=== PATIENT | male | born 1940 | race Caucasian/White ===

== ENCOUNTER 2023-05-06 13:22 | Outpatient (CLI) | payer MEDICARE, OTHER | END 2023-05-06 23:59 | disposition EMS.NT | LOC: EMS 13:22 | DX: S00.81XA Abrasion of other part of head, initial encounter (principal); W10.8XXA Fall (on) (from) other stairs and steps, initial encounter; Y92.008 Other place in unspecified non-institutional (private) residence as the place of occurrence of the external cause ==

== ENCOUNTER 2023-05-27 15:35 | Outpatient (CLI) | payer MEDICARE, OTHER | END 2023-05-27 15:36 | disposition critical access hospital (66) | LOC: EMS 15:35 | DX: S01.81XA Laceration without foreign body of other part of head, initial encounter (principal); W18.30XA Fall on same level, unspecified, initial encounter; Y92.480 Sidewalk as the place of occurrence of the external cause | CPT/HCPCS: A0425; A0429 ==

== ENCOUNTER 2023-05-27 15:56 | Emergency (ER) | payer MEDICARE, OTHER ==
--- NOTE | 2023-05-27 16:13 | ED Physician Documentation ---
PD HPI HEAD INJURY - Stated complaint Stated Complaint: GLF/EYE LAC - Chief complaint Chief Complaint: Trauma Hd/Nk - History obtained from History obtained from: Patient - History of Present Illness Mechanism of head injury: Fell (he states he was out walking to mailbox and felt himself off balance and fell, face first. He denies LOC/syncope. No headache prior. Facial pain and lacs from fall. Denies chest nor abd pain. States had a fall from balance problem last week as well. Usually goes to mailbox daily. Uses cane PRN.) Where head injury occurred: Home Timing - onset: Today Location of injury: Front Quality of pain: Pain (pain in facial injuries area of forehead and nose. Also some frontal headache.), Aching Associated symptoms: No: LOC, AMS, Nausea / vomiting, Neck pain Symptoms worsen with: Palpation Contributing factors: No: Anticoagulated, Intoxicated Recently seen: Not recently seen Review of Systems Constitutional: denies: Fever, Chills Nose: denies: Rhinorrhea / runny nose, Congestion Throat: denies: Sore throat Cardiac: denies: Chest pain / pressure, Palpitations Respiratory: denies: Dyspnea, Cough GI: denies: Abdominal Pain, Nausea, Vomiting, Diarrhea, Bloody / black stool Neurologic: denies: Syncope, Altered mental status PD PAST MEDICAL HISTORY - Past Medical History Cardiovascular: Hypertension, High cholesterol Respiratory: None Neuro: None Endocrine/Autoimmune: None - Past Surgical History Past Surgical History: Yes Ortho: Spine surgery - Present Medications Home Medications: Ambulatory Orders Medication Instructions Recorded Confirmed Hydroxyzine HCl 25 mg PO TID 08/03/14 11/25/14 Tamsulosin [Flomax] 0.4 mg PO DAILY #10 capsule 08/03/14 11/25/14 oxyCODONE [Roxicodone] 5 mg PO TID 08/03/14 11/25/14 Simvastatin 1 tab DAILY 11/25/14 11/25/14 lisinopriL [Lisinopril] 1 tab DAILY 11/25/14 11/25/14 Ferrous Gluconate 324 mg PO DAILY #30 tablet 05/27/23 - Allergies Allergies/Adverse Reactions: Allergies Allergy/AdvReac Type Severity Reaction Status Date / Time adhesive Allergy Unknown Verified 05/27/23 16:06 - Living Situation Living Situation: reports: Alone Living Arrangement: reports: At home - Social History Does the pt smoke?: No Smoking Status: Never smoker Does the pt drink ETOH?: No Does the pt have substance abuse?: No PD ED PE NORMAL - Vitals Vital signs reviewed: Yes - General General: Alert and oriented X 3, No acute distress, Well developed/nourished - HEENT HEENT: PERRL (constricted bilaterally but reactive. ), EOMI (no dipolopia. ), Other (small lacerations left forehead and bridge of nose. No faical bony deformity nor tenderness. Abrasions in those areas too. ) - Neck Neck: Supple, no meningeal sign, No bony TTP, No adenopathy - Cardiac Cardiac: RRR, No murmur - Respiratory Respiratory: Clear bilaterally Results - Vitals Vitals: Vital Signs - 24 hr 05/27/23 05/27/23 05/27/23 16:00 16:25 18:02 Temperature 36.6 C Heart Rate 82 81 89 Respiratory 16 16 16 Rate Blood Pressure 158/68 H 151/67 H 144/68 H O2 Saturation 100 100 100 05/27/23 05/27/23 19:35 20:35 Temperature Heart Rate 81 74 Respiratory 16 16 Rate Blood Pressure 137/65 H 135/112 H O2 Saturation 100 99 Oxygen O2 Source Room air - EKG (time done) 06 EKG releavant findings:: EKG personally interpreted by author of this note. Relevant findings are: Rate: Rate (enter#) (82) Rhythm: NSR [place]: Normal Intervals: Normal NV QRS: Normal Ischemia: Normal ST segments. No: ST elevation c/w ischemia, ST depression - Labs Labs: Laboratory Tests 05/27/23 05/27/23 05/27/23 17:26 17:26 17:26 WBC 9.1 RBC 3.06 L Hgb 9.7 L Hct 30.3 L MCV 99.0 H MCH 31.7 H MCHC 32.0 RDW 12.8 Plt Count 190 MPV 9.8 Neut # (Auto) 6.4 Lymph # (Auto) 1.6 [place] # (Auto) 0.8 Eos # (Auto) 0.3 Baso # (Auto) 0.0 Absolute Nucleated RBC 0.00 Nucleated RBC % 0.0 Sodium 138 Potassium 4.0 Chloride 107 Carbon Dioxide 24 Anion Gap 7.0 BUN 56 H Creatinine 1.5 H Estimated GFR (MDRD) 45 L Glucose 108 H Calcium 9.7 Magnesium 1.8 Iron TIBC % Saturation Transferrin Total Bilirubin 0.4 AST 28 ALT 17 Alkaline Phosphatase 67 B-Natriuretic Peptide 89 Total Protein 6.8 Albumin 4.0 Globulin 2.8 Albumin/Globulin Ratio 1.4 Lipase 48 Vitamin B12 Folate Ethyl Alcohol < 10.0 05/27/23 17:26 WBC RBC Hgb Hct MCV MCH MCHC RDW Plt Count MPV Neut # (Auto) Lymph # (Auto) [place] # (Auto) Eos # (Auto) Baso # (Auto) Absolute Nucleated RBC Nucleated RBC % Sodium Potassium Chloride Carbon Dioxide Anion Gap BUN Creatinine Estimated GFR (MDRD) Glucose Calcium Magnesium Iron 40 L TIBC 273 % Saturation 15 L Transferrin 195 L Total Bilirubin AST ALT Alkaline Phosphatase B-Natriuretic Peptide Total Protein Albumin Globulin Albumin/Globulin Ratio Lipase Vitamin B12 252 Folate 26.7 Ethyl Alcohol - Rads (name of study) chest xray Relevant Findings:: Prelim report reviewed (low lung volume. No acute provess), EMP independent interpretation of test cervical CT Relevant Findings:: Prelim report reviewed (no acute fractures), EMP independent interpretation of test head CT Relevant Findings:: Prelim report reviewed (3 mm width small subdural hematome frontal left.), Discussed with rads, EMP independent interpretation of test Procedures - Laceration (location) face Length in cm: 2 (forehead and bridge of nose) Wound type: Irregular Neurovascular status: Sensory intact Anesthesia: LET Wound preparation: Irrigated copiously NS, Wound explored, To the base Skin layer closure: Nylon, Interrupted, Size #-0 - enter number (5), Sutures - enter # (5 - 2 in forehead and 3 no bridge of nose.) PD Medical Decision Making - ED course Complexity details: reviewed results (has current fall with facial/head injury. Has some bilateral leg edema for weeks/months, and will get labs CXR. Results of these are mild elevated renal function creatinine 1.5, normal BNP. Lytes are okay. Does have anemia from low iron. Can add Iron supplement. ), considered differential (fall apparently from misbalance. No syncope. Will get labs due to description of some general weakness. Frontal head injury. With age, cannot clear by NEXUS head rules. WIll get CT head and neck. ), d/w patient, d/w cisco consultant (small subdural but very small. Will consult neurosurgery at [facility] [place] [place] for consultation. Presume will want repeatscan at an interval. Left care to oncoming EDMD. ) Departure - Departure Clinical Impression: Fall from slip, trip, or stumble, Subdural hematoma, Facial laceration, Bilateral leg edema, Iron deficiency anemia, Renal insufficiency Condition: Stable Record reviewed to determine appropriate education?: Yes Prescriptions: Ferrous Gluconate 324 mg PO DAILY #30 tablet Comments: It is okay to wash and shower. Cleanse wounds daily with soap and water and apply ointment. recheck if signs of infection. Suture removal in 7-8 days. Recheck if signs of infection. For your leg edema, no signs of heart failure nor fluid overload per se. Elevate legs often and consider wraps or compression socks to help with swelling. You do have anemia paparently from iron deficiency. Add iron supplement daily. FOllow up with your PCP, call for appt. Forms: PCP List
[2023-05-27] MEDS ORDERED: LIDOCAINE-EPINEPH-TETRACAINE 3 ML SYRINGE TOP STA (16:42)
--- NOTE | 2023-05-27 17:07 | XRAY Report ---
PROCEDURE: Chest 1 View X-Ray INDICATIONS: bilat leg edema TECHNIQUE: One view of the chest was acquired. COMPARISON: None. FINDINGS: Surgical changes and devices: None. Lungs and pleura: An incomplete inspiratory result is noted, with low lung volumes and crowding of t he vascular markings. No focal infiltrates are seen. No large pneumothorax or large pleural effusion can be seen. Mediastinum: The aorta is prominent and tortuous. The cardiac contours are within normal limits. Bones and chest wall: No suspicious bony lesions. Age-appropriate degenerative changes are seen. O verlying soft tissues appear unremarkable. IMPRESSION: Low lung volumes, without an acute abnormality seen by plain film. Reviewed by: Tae Caballero MD on 05/27/2023 4:06 PM MARIS Approved by: Tae Caballero MD on 05/27/2023 4:06 PM MARIS Station ID: [id number]
[2023-05-27] MEDS ORDERED: SODIUM CHLORIDE 0.9% 1,000 ML IV STA (17:08)
[2023-05-27 17:30] LABS: BASOPHILS % (AUTO) 0.4 %; EOSINOPHILS # (AUTO) 0.3 10^3/uL (0.0-0.7); EOSINOPHILS % (AUTO) 2.8 %; HCT - HEMATOCRIT 30.3 % (42.0-52.0); HGB - HEMOGLOBIN 9.7 g/dL (14.0-18.0); LYMPHOCYTES # (AUTO) 1.6 10^3/uL (1.5-3.5); LYMPHOCYTES % (AUTO) 17.2 %; MEAN CORPUSCULAR HEMOGLOBIN 31.7 pg (27.0-31.0); MEAN PLATELET VOLUME 9.8 fL (7.4-11.4); MONOCYTES # (AUTO) 0.8 10^3/uL (0.0-1.0); MONOCYTES % (AUTO) 9.1 %; NEUTROPHILS # (AUTO) 6.4 10^3/uL (1.5-6.6); NEUTROPHILS % (AUTO) 70.1 %; PLT - PLATELET COUNT 190 10^3/uL (130-450); RED BLOOD COUNT 3.06 10^6/uL (4.70-6.10); RED CELL DISTRIBUTION WIDTH 12.8 % (12.0-15.0); WHITE BLOOD COUNT 9.1 x10^3/uL (4.8-10.8)
[2023-05-27 17:48] LABS: ALBUMIN/GLOBULIN RATIO 1.4 (1.0-2.2); ALKALINE PHOSPHATASE 67 IU/L (42-121); ALT ALANINE AMINOTRANSFERASE 17 IU/L (10-60); AST ASPARTATE AMINOTRANSFERASE 28 IU/L (10-42); BILIRUBIN,TOTAL 0.4 mg/dL (0.2-1.0); BUN - BLOOD UREA NITROGEN 56 mg/dL (6-20); CALCIUM 9.7 mg/dL (8.5-10.3); CARBON DIOXIDE - CO2 24 mmol/L (21-32); CHLORIDE 107 mmol/L (101-111); CREATININE 1.5 mg/dL (0.6-1.3); ETOH - ETHANOL < 10.0 mg/dL; GFR - MDRD 45 (>89); GLUCOSE 108 mg/dL (74-104); LIPASE 48 U/L (11-82); MAGNESIUM 1.8 mg/dL (1.7-2.3); SODIUM 138 mmol/L (135-145); TOTAL PROTEIN 6.8 g/dL (6.4-8.9)
--- NOTE | 2023-05-27 18:14 | CT Report ---
PROCEDURE: CERVICAL SPINE WO INDICATIONS: fall struck face; head/neck pain TECHNIQUE: Noncontrast 3 mm thick sections acquired from the skull base to the T4 level. Sagittal and coronal r eformats were then constructed. For radiation dose reduction, the following was used: automated exp osure control, adjustment of mA and/or kV according to patient size. COMPARISON: Correlation is made with the accompanying head CT. FINDINGS: Image quality: Excellent. Bones: No fractures or dislocations. Visualized superior ribs are intact. Focal degenerative change can be seen involving the C1-C2 interface anteriorly. Minimal anterolisthes is is seen at C3-C4, with mild anterolisthesis at C4-C5, with moderate disc space narrowing. There is trace narrowing is seen at C5-C6, with a degree of bony fusion. Moderate to severe disc space narrow ing can be seen at C6-7, with a degree of bony fusion. Minimal retrolisthesis can be seen at C6-C7. Soft tissues: Prevertebral soft tissues are normal in thickness. No paravertebral hematomas. No ap ical pneumothoraces. IMPRESSION: Negative for acute fracture. Multiple levels of cervical spine degenerative change can be seen, which are worst in the early. Reviewed by: Tae Caballero MD on 05/27/2023 5:12 PM MARIS Approved by: Tae Caballero MD on 05/27/2023 5:12 PM MARIS Station ID: [id number]
--- NOTE | 2023-05-27 18:20 | CT Report ---
PROCEDURE: HEAD WO INDICATIONS: fall, struvck face: hed/neck pain TECHNIQUE: Noncontrast 4.5 mm thick angled axial sections acquired from the foramen magnum to the vertex. For r adiation dose reduction, the following was used: automated exposure control, adjustment of mA and/or kV according to patient size. COMPARISON: None. FINDINGS: Image quality: Excellent. CSF spaces: Basal cisterns are patent. No extra-axial fluid collections. Ventricles are normal in size and shape. Brain: No midline shift. There is a small left frontal 3 mm subdural hematoma. Age-related global vo lume loss and chronic microvascular ischemic changes. Intracranial atherosclerotic vascular calcifica tions. Earl-white matter interface is normal. Skull and face: Left frontal scalp laceration with subcutaneous emphysema. Calvarium and visualized facial bones are intact, without suspicious lesions. Sinuses: Visualized sinuses and mastoids are clear. IMPRESSION: There is a 3 mm left frontal subdural hematoma near midline. Findings were discussed with ebony Bolton at the time of dictation. Reviewed by: Karri Oshea MD on 05/27/2023 6:19 PM PDT Approved by: Karri Oshea MD on 05/27/2023 6:19 PM PDT Station ID: [id number]
--- NOTE | 2023-05-27 19:17 | ED Physician Documentation ---
ED Addendum - Addendum Addendum: 05/27/23 19:15 Patient received a signout from off going physician, please see their d ocumentation for further detail. Patient signed out to me with consultation with [facility] neurosurgery pending for 3 mm left frontal subdural. Medications reviewed, no blood thinners or antiplatelet medications. Remainder patient's labs and imaging reviewed, generally reassuring.Low level anemia slightly worse than baseline noted. Mild elevation BUN/creatinine. 05/27/23 19:16 05/27/23 23:[address] unchanged from previous. Care was discussed with the neurosurgical team at [facility]. At this time will discharge for follow-up with primary care. Clear return precautions given. Departure - Departure Disposition: 01 Home, Self Care Clinical Impression: Subdural hematoma, Bilateral leg edema, Renal insufficiency Fall from slip, trip, or stumble Qualifiers: Encounter type: initial encounter Qualified Code(s): W01.0XXA - Fall on same level from slipping, tripping and stumbling without subsequent striking against object, initial encounter Facial laceration Qualifiers: Encounter type: initial encounter Qualified Code(s): S01.81XA - Laceration without foreign body of other part of head, initial encounter Iron deficiency anemia Qualifiers: Iron deficiency anemia type: other iron deficiency Qualified Code(s): D50.8 - Other iron deficiency anemias Condition: Stable Prescriptions: Ferrous Gluconate 324 mg PO DAILY #30 tablet Comments: It is okay to wash and shower. Cleanse wounds daily with soap and water and apply ointment. recheck if signs of infection. Suture removal in 7-8 days. Recheck if signs of infection. For your leg edema, no signs of heart failure nor fluid overload per se. Elevate legs often and consider wraps or compression socks to help with swelling. You do have anemia paparently from iron deficiency. Add iron supplement daily. FOllow up with your PCP, call for appt. Forms: PCP List
[2023-05-27] MEDS ORDERED: ACETAMINOPHEN 1,000 MG/100 ML 1,000 MG/100 ML BAG IV ONE (19:40)
[2023-05-27 20:58] LABS: INR 1.1 (0.8-1.2)
[2023-05-27] MEDS ORDERED: oxyCODONE 5 MG TABLET PO STA (23:41)
--- NOTE | 2023-05-27 23:46 | CT Report ---
PROCEDURE: HEAD WO INDICATIONS: Interval repeat TECHNIQUE: Noncontrast 4.5 mm thick angled axial sections acquired from the foramen magnum to the vertex. For r adiation dose reduction, the following was used: automated exposure control, adjustment of mA and/or kV according to patient size. COMPARISON: Study performed earlier the same day at 1732 hours. FINDINGS: Image quality: Excellent. CSF spaces: Basal cisterns are patent. No extra-axial fluid collections. Ventricles are normal in size and shape. Brain: No midline shift. There is stable size and appearance of subtle, thin left frontal subdural hematoma near the midline. No CT evidence of new intracranial hemorrhage. Earl-white matter interface is normal. Skull and face: Stable appearance to small subcutaneous soft tissue hematoma in the left frontal reg ion without debris or underlying fracture. Sinuses: Visualized sinuses and mastoids are clear. IMPRESSION: 1. Stable appearance of small left frontal subdural hematoma. 2. No CT evidence of new intracranial hemorrhage elsewhere . Reviewed by: Ela Escamilla MD on 05/27/2023 11:45 PM PDT Approved by: Ela Escamilla MD on 05/27/2023 11:45 PM PDT Station ID: [id number]
[2023-05-28 01:53] VITALS: BP 117/54; O2SAT 94
== END 2023-05-28 01:40 | disposition home or self-care (01) ==
LOC: EDUNIT# → ED 15:56
DX: S01.81XA Laceration without foreign body of other part of head, initial encounter (principal); W01.0XXA Fall on same level from slipping, tripping and stumbling without subsequent striking against object, initial encounter; D50.9 Iron deficiency anemia, unspecified; N28.9 Disorder of kidney and ureter, unspecified; I10 Essential (primary) hypertension; R60.9 Edema, unspecified
CPT/HCPCS: 12011; 36415; 70450; 71045; 72125; 80053; 82607; 82746; 83540; 83690; 83735; 83880; 84466; 85025; 85610; 93005; 96365; 99284; A9270; G0480; J0131; 80320

== ENCOUNTER 2024-02-23 13:15 | Outpatient (CLI) | payer MEDICARE, OTHER ==
--- NOTE | 2024-02-23 15:02 | Ultrasound Report ---
PROCEDURE: Renal (Retroperitoneal) INDICATIONS: KIDNEY DYSFUNCTION TECHNIQUE: Real-time scanning was performed of the retroperitoneal organs, with image documentation. COMPARISON: None. FINDINGS: Kidneys: Kidneys are normal in size. Right kidney measures 8.9 cm long; left kidney measures 11.2 c m long. Right renal cortical thickness is 0.8 cm; left renal cortical thickness is 0.5 cm. There is severe left-sided hydronephrosis with dilated proximal left ureter measures 3.1 cm in diamet er. Moderate to severe right-sided hydronephrosis is also seen with distended right renal pelvis. Sim ple appearing cysts are noted in right kidney measures up to 1.7 x 2.1 x 2.1 cm in size. Simple appea ring small cysts are also noted in left kidney. There is a solid appearing hypoechoic structure seen in midpole of left kidney measures 1.5 x 1.5 x 1.3 cm in size. No definite internal vascularity is se en. Bladder: Pre-void bladder volume is 656.31 mL. Post-void residual is 591.18 mL. Pre-void images de monstrate no intraluminal masses or stones. On pre-void images, bilateral ureteral jets are noted wi th color Doppler interrogation. (Of note, ureteral jets may not be detectable in up to 25% of cases due to insufficient differences in specific gravity between ureteral and bladder urine). Miscellaneous: No free abdominal fluid. Mildly enlarged prostate gland is seen with mass effect on floor of urinary bladder measures 3.6 x 4.6 x 3.6 cm in size. IMPRESSION: 1. Severe left-sided hydronephrosis and moderate to severe right-sided hydronephrosis as above. 2. Simple appearing bilateral renal cortical cysts. Solid appearing nodule is seen in mid pole left k idney and show no significant internal vascularity. This could represent complex cyst. Renal cell car cinoma cannot be excluded. 3. Large amount of postvoid residual concerning for urinary outlet obstruction. Reviewed by: Mac Parekh MD on 02/23/2024 3:00 PM PDT Approved by: Mac Parekh MD on 02/23/2024 3:00 PM PDT Station ID: [id number]
== END 2024-02-23 13:16 | disposition home or self-care (01) ==
LOC: DI 13:15
PROVIDERS: ATTEND Internal Medicine Nephrology
DX: N13.30 Unspecified hydronephrosis (principal); N28.1 Cyst of kidney, acquired; N28.89 Other specified disorders of kidney and ureter; N32.0 Bladder-neck obstruction

== ENCOUNTER 2024-02-25 09:17 | Emergency (ER) | payer MEDICARE, OTHER ==
--- NOTE | 2024-02-25 09:35 | ED Physician Documentation ---
History of Present Illness - Stated complaint Stated Complaint: NEEDS LANE PLACED - Chief complaint Chief Complaint: General - Additonal information Additional information: Nice gentleman with chronic kidney disease follows with Dr. Galvez as an outpatient. He had a retroperitoneal ultrasound which showed hydronephrosis and likely bladder outlet obstruction. Dr. Galvez called him and asked him to come to the ED for Lane. I spoke with Dr. Galvez who asked me to check a baseline BMP otherwise to place a Lane and to have him be seen as an outpatient by him as well as by urology. The patient is completely asymptomatic does have some drib víctor and frequency and sometimes difficulty passing his urine he has no fevers chills cough chest pain nausea or vomiting. Review of Systems Constitutional: denies: Fever, Chills PD PAST MEDICAL HISTORY - Past Medical History Past Medical History: Yes Cardiovascular: Hypertension, High cholesterol, Other Respiratory: None Neuro: None Endocrine/Autoimmune: None - Past Surgical History Past Surgical History: Yes Ortho: Spine surgery - Present Medications Home Medications: Ambulatory Orders Medication Instructions Recorded Confirmed Tamsulosin [Flomax] 0.4 mg PO DAILY #10 capsule 08/03/14 02/25/24 Acetaminophen [Tylenol] 1 tab PO PRN PRN 02/25/24 02/25/24 Ferrous Sulfate [Feosol] 1 tab PO DAILY 02/25/24 02/25/24 Folic Acid 1 tab PO DAILY 02/25/24 02/25/24 Furosemide [Lasix] 1 tab PO DAILY 02/25/24 02/25/24 Lisinopril [Zestril] 1 tab PO DAILY 02/25/24 02/25/24 Pantoprazole [Protonix] 1 tab PO DAILY 02/25/24 02/25/24 Rosuvastatin Calcium 1 tab PO DAILY 02/25/24 02/25/24 - Allergies Allergies/Adverse Reactions: Allergies Allergy/AdvReac Type Severity Reaction Status Date / Time adhesive Allergy Unknown Verified 02/25/24 09:30 - Social History Does the pt smoke?: No Smoking Status: Never smoker Does the pt drink ETOH?: No Does the pt have substance abuse?: No - Immunizations Immunizations are current?: Yes - POLST Patient has POLST: No PD ED PE NORMAL - Vitals Vital signs reviewed: Yes - General General: Alert and oriented X 3 - HEENT HEENT: Atraumatic - Neck Neck: Supple, no meningeal sign - Cardiac Cardiac: RRR, No murmur - Respiratory Respiratory: No respiratory distress - Abdomen Abdomen: Normal bowel sounds, Non tender - Extremities Extremities: No deformity, No edema - Neuro Neuro: Alert and oriented X 3 Results - Vitals Vitals: Vital Signs - 24 hr 02/25/24 02/25/24 09:26 09:30 Temperature 36.4 C L 36.7 C Heart Rate 61 59 L Respiratory 20 16 Rate Blood Pressure 163/62 H 169/76 H O2 Saturation 99 99 Oxygen O2 Source Room air - Labs Labs: Laboratory Tests 02/25/24 09:59 Sodium 138 Potassium 4.3 Chloride 106 Carbon Dioxide 26 Anion Gap 6.0 BUN 33 H Creatinine 2.0 H Estimated GFR (MDRD) 32 L Glucose 109 H Calcium 9.8 PD Medical Decision Making - ED course ED course: Discussed this case with Dr. Galvez his machine tender. He recommended placing Lane and checking a BMP to gauge his current level. His BUN and creatinine are slightly elevated with a creatinine of 2.0. This will be followed by Dr. Barth and his machine tender as an outpatient. The patient had a Lane catheter placed was given Lane care instructions be following up in the outpatient setting. Departure - Departure Disposition: 01 Home, Self Care Clinical Impression: Urinary retention Instructions: ED Catheter Care Lane, ED Retention Urinary Male Follow-Up: Cici Barth MD [Primary Care Provider] - Carlos Mendes MD [Provider Admit Priv/Credential] - Comments: Per Dr. Barth, the Lane catheter needs to be in for about a month. Will give the name of the urologist Dr. Mendes as well. We gave you Lane care instructions for home. See Dr. Hall in 1 to 2 weeks as scheduled. Return to emergency department if catheter is not working fevers chills nausea vomiting any other concerns. Forms: PCP List
[2024-02-25 10:15] LABS: CALCIUM 9.8 mg/dL (8.5-10.3); POTASSIUM 4.3 mmol/L (3.5-4.5)
[2024-02-25] MEDS ORDERED: LIDOCAINE VISCOUS 2% 15 ML UDC MM STA (10:35)
[2024-02-25] MEDS: LIDOCAINE 2% URO-JET 5 ML SYRINGE UR STA (10:45)
[2024-02-25 11:19] LABS: BILIRUBIN,URINE NEGATIVE (NEGATIVE); GLUCOSE, URINE (UA) NEGATIVE (NEGATIVE); KETONES,URINE (UA) NEGATIVE (NEGATIVE); LEUKOCYTE ESTERASE, URINE NEGATIVE (NEGATIVE); NITRITE,URINE NEGATIVE (NEGATIVE); OCCULT BLOOD,URINE MODERATE (NEGATIVE); PROTEIN,URINE NEGATIVE (NEGATIVE); UROBILINOGEN,URINE 0.2 (NORMAL) E.U./dL (NORMAL)
[2024-02-25 11:22] LABS: CLARITY,URINE CLEAR (CLEAR)
[2024-02-25 11:30] LABS: BACTERIA,URINE None Seen /HPF (None Seen); SQUAMOUS EPITHELIAL CELL,UR NONE SEEN (<= Few); WBC,URINE 0-3 /HPF (0-3)
[2024-02-25 11:35] VITALS: BP 147/88; O2SAT 98
== END 2024-02-25 11:30 | disposition home or self-care (01) ==
LOC: ED 09:17
DX: R33.9 Retention of urine, unspecified (principal); N18.9 Chronic kidney disease, unspecified; I10 Essential (primary) hypertension; E78.00 Pure hypercholesterolemia, unspecified
CPT/HCPCS: 36415; 51702; 80048; 81001; 81003; 87086; 99283

== ENCOUNTER 2024-03-15 07:33 | Outpatient (CLI) | payer MEDICARE, OTHER | END 2024-03-15 23:59 | disposition critical access hospital (66) | LOC: EMS 07:33 | DX: R53.1 Weakness (principal); M54.50 Low back pain, unspecified; T83.84XA Pain due to genitourinary prosthetic devices, implants and grafts, initial encounter; R39.89 Other symptoms and signs involving the genitourinary system | CPT/HCPCS: A0425; A0429 ==

== ENCOUNTER 2024-03-15 07:54 | Emergency (ER) | payer MEDICARE, OTHER ==
--- NOTE | 2024-03-15 08:15 | ED Physician Documentation ---
PD HPI ALTERED MENTAL STATUS - Stated complaint Stated Complaint: - Chief complaint Chief Complaint: Back Pain - History obtained from History obtained from: Patient - History of Present Illness Timing - onset: Today, Yesterday Timing - details: Gradual onset, Still present Quality / character: Agitated (uncoomfrtable due to lower abd and back pain. Cloudy urine output from sharma. No fever but states generally not feeling weel. Achy generally. No fever.) Associated symptoms: No: Fever, Cough Contributing factors: Other (chronic sharma, last changed about 1 1/2 weeks ago.). No: Recent illness Basline status: Confused, Walker, Wheelchair PD PAST MEDICAL HISTORY - Past Medical History Past Medical History: Yes Cardiovascular: Hypertension, High cholesterol, Other Respiratory: None Neuro: Dementia Endocrine/Autoimmune: None HEENT: None Musculoskeletal: Chronic back pain, Other Other Past Medical History: spinal stenosis - Past Surgical History Past Surgical History: Yes Ortho: Spine surgery - Present Medications Home Medications: Ambulatory Orders Medication Instructions Recorded Confirmed Acetaminophen [Tylenol] 650 tab PO Q6HR PRN 02/25/24 03/15/24 Ferrous Sulfate [Feosol] 325 mg PO DAILY 02/25/24 03/15/24 Folic Acid 1 mg PO DAILY 02/25/24 03/15/24 Furosemide [Lasix] 20 mg PO DAILY PRN 02/25/24 03/15/24 Lisinopril [Zestril] 10 mg PO DAILY 02/25/24 03/15/24 Pantoprazole [Protonix] 40 mg PO DAILY 02/25/24 03/15/24 Rosuvastatin Calcium 5 mg PO DAILY 02/25/24 03/15/24 Ascorbic Acid [Vitamin C] 250 mg PO DAILY 03/15/24 03/15/24 Cholecalciferol [Vitamin D3] 400 unit PO DAILY 03/15/24 03/15/24 Cyanocobalamin (Vitamin B-12) 1,000 mcg PO DAILY 03/15/24 03/15/24 [Vitamin B12] Loperamide [Imodium] 4 mg PO QID PRN 03/15/24 03/15/24 Mag Hydrox/Aluminum Hyd/Simeth 30 ml PO Q4HR PRN 03/15/24 03/15/24 [Alum-Mag Hydroxide-Simeth Cup] Magnesium Hydroxide [Milk of 400 mg PO PRN PRN 03/15/24 03/15/24 Magnesia] levoFLOXacin [Levofloxacin] 250 mg PO BID #20 tablet 03/15/24 - Allergies Allergies/Adverse Reactions: Allergies Allergy/AdvReac Type Severity Reaction Status Date / Time adhesive Allergy Unknown Verified 02/25/24 09:30 chocolate Allergy Unknown Verified 03/15/24 07:56 peanut Allergy Unknown Verified 03/15/24 07:56 pepper (genus Capsicum) Allergy Unknown Verified 03/15/24 07:56 - Social History Does the pt smoke?: No Smoking Status: Never smoker Does the pt drink ETOH?: No Does the pt have substance abuse?: No - Immunizations Immunizations are current?: Yes - POLST Patient has POLST: No PD ED PE NORMAL - Vitals Vital signs reviewed: Yes - General General: Alert and oriented X 3, Well developed/nourished, Other (appears feeling ill and in general discomfort, but more to lower abd and back. ) - Respiratory Respiratory: No respiratory distress, Clear bilaterally - Abdomen Abdomen: Normal bowel sounds, Soft, No organomegaly, Other (tender and full in suprapubic/bladder area. Sharma in place and has some urine draiange that is cloudy. ) Results - Vitals Vitals: Vital Signs - 24 hr 03/15/24 14:00 Heart Rate 69 Respiratory 16 Rate Blood Pressure 98/46 L O2 Saturation 96 Oxygen O2 Source Room air - Labs Labs: Microbiology 03/15/24 08:50 Urine Culture - Preliminary Urine,Catheterized Laboratory Tests 03/15/24 03/15/24 03/15/24 08:40 08:40 08:40 WBC 14.2 H RBC 3.14 L Hgb 9.6 L Hct 29.9 L MCV 95.2 H MCH 30.6 MCHC 32.1 RDW 12.3 Plt Count 245 MPV 9.5 Neut # (Auto) 12.8 H Lymph # (Auto) 0.5 L [place] # (Auto) 0.8 Eos # (Auto) 0.0 Baso # (Auto) 0.0 Absolute Nucleated RBC 0.00 Nucleated RBC % 0.0 Sodium 138 Potassium 4.5 Chloride 106 Carbon Dioxide 22 Anion Gap 10.0 BUN 66 H Creatinine 2.9 H Estimated GFR (MDRD) 21 L Glucose 154 H Lactic Acid 0.7 Calcium 9.8 Magnesium 1.9 Total Bilirubin 0.5 AST 15 ALT 13 Alkaline Phosphatase 58 Total Protein 6.9 Albumin 3.4 Globulin 3.5 Albumin/Globulin Ratio 1.0 Lipase 11 Urine Color Urine Clarity Urine pH Ur Specific [employer] Urine Protein Urine Glucose (UA) Urine Ketones Urine Occult Blood Urine Nitrite Urine Bilirubin Urine Urobilinogen Ur Leukocyte Esterase Urine RBC Urine WBC Ur Squamous Epith Cells Urine Bacteria Ur Microscopic Review Urine Culture Comments Nasal Adenovirus (PCR) Nasal B. parapertussis DNA (PCR) Nasal Coronavir 229E PCR Nasal Coronavir HKU1 PCR Nasal Coronavir NL63 PCR Nasal Coronavir OC43 PCR Nasal Enterovir/Rhinovir PCR Nasal Influenza B PCR Nasal Influenza A PCR Nasal Parainfluen 1 PCR Nasal Parainfluen 2 PCR Nasal Parainfluen 3 PCR Nasal Parainfluen 4 PCR Nasal RSV (PCR) Nasal B.pertussis DNA PCR Nasal C.pneumoniae (PCR) Ruben Human Metapneumo PCR Nasal M.pneumoniae (PCR) Nasal SARS-CoV-2 (PCR) 03/15/24 03/15/24 08:45 08:50 WBC RBC Hgb Hct MCV MCH MCHC RDW Plt Count MPV Neut # (Auto) Lymph # (Auto) [place] # (Auto) Eos # (Auto) Baso # (Auto) Absolute Nucleated RBC Nucleated RBC % Sodium Potassium Chloride Carbon Dioxide Anion Gap BUN Creatinine Estimated GFR (MDRD) Glucose Lactic Acid Calcium Magnesium Total Bilirubin AST ALT Alkaline Phosphatase Total Protein Albumin Globulin Albumin/Globulin Ratio Lipase Urine Color YELLOW Urine Clarity CLOUDY Urine pH 8.5 H Ur Specific [employer] 1.015 Urine Protein 100 H Urine Glucose (UA) NEGATIVE Urine Ketones NEGATIVE Urine Occult Blood MODERATE H Urine Nitrite POSITIVE H Urine Bilirubin NEGATIVE Urine Urobilinogen 0.2 (NORMAL) Ur Leukocyte Esterase LARGE H Urine RBC 11-25 H Urine WBC >25 H Ur Squamous Epith Cells NONE SEEN Urine Bacteria Many H Ur Microscopic Review INDICATED Urine Culture Comments INDICATED Nasal Adenovirus (PCR) NOT DETECTED Nasal B. parapertussis DNA (PCR) NOT DETECTED Nasal Coronavir 229E PCR NOT DETECTED Nasal Coronavir HKU1 PCR NOT DETECTED Nasal Coronavir NL63 PCR NOT DETECTED Nasal Coronavir OC43 PCR NOT DETECTED Nasal Enterovir/Rhinovir PCR NOT DETECTED Nasal Influenza B PCR NOT DETECTED Nasal Influenza A PCR NOT DETECTED Nasal Parainfluen 1 PCR NOT DETECTED Nasal Parainfluen 2 PCR NOT DETECTED Nasal Parainfluen 3 PCR NOT DETECTED Nasal Parainfluen 4 PCR NOT DETECTED Nasal RSV (PCR) NOT DETECTED Nasal B.pertussis DNA PCR NOT DETECTED Nasal C.pneumoniae (PCR) NOT DETECTED Ruben Human Metapneumo PCR NOT DETECTED Nasal M.pneumoniae (PCR) NOT DETECTED Nasal SARS-CoV-2 (PCR) NOT DETECTED - Rads (name of study) abd/pel CT Relevant Findings:: Prelim report reviewed (sharma low below prostate and not draining with still full bladder and hydroureter/nephrosis. No stones. ), EMP independent interpretation of test PD Medical Decision Making - ED course Complexity details: reviewed results (CT scan showing sharma in urethra with poor draining. Full bladder and hydro noted. no stones. ), re-evaluated patient (his low abd and back pain are much improved/gone after replacement of the sharma and now good drainage. He does have UTI evident on UA. Not clear if regular contami nant versus true infection. Given symptoms may have been mechanical, but should treat for infection too. ), considered differential (having back pain and lower abd pain. Sharma draining sedimented and some cloudy. No fever. General weakness. General malaise and aches. ), d/w patient Reviewed Lab Results: creatinine up from 2.0 to 2.9 but likely an element of obstructive uropathy due to sharma dysfunction. WBC slightly elevated. Viral panel negative. Lactate negative. about baseline anemai. Unclear if he accidentally pulled catheter part out. Unlikely malpositioned since last sharma change, which was 1 1/2 weeks ago, I thinkw would have been symptomatic prior to this. Departure - Departure Disposition: 01 Home, Self Care Clinical Impression: Back pain, UTI (urinary tract infection), Sharma catheter problem, Chronic indwelling Sharma catheter, Renal insufficiency Condition: Stable Record reviewed to determine appropriate education?: Yes Instructions: ED UTI Cystitis Male Prescriptions: levoFLOXacin [Levofloxacin] 250 mg PO BID #20 tablet Comments: Your symptoms of the back pain and general body aches likely originates or is caused by a urinary tract infection. Your urine does look consistent with an infection (unfortunately there is often some appearance of that with a chronic Sharma catheter even without a true infection). We will do a culture on this and see what grows from it. I initiated a antibiotic ciprofloxacin twice daily. You were given a dose IV here in the ER. Your Sharma catheter was partly pulled out on CT scan such that it was not draining the bladder appropriately and causing some back pressure to the kidneys. This was no doubt adding to your discomfort in the back and belly and those symptoms should be well improved now and apparently you are with a new catheter in place. Your catheter now appears to be draining well. Your white count is slightly elevated on blood testing but other markers like fever and blood test called lactate are normal. No signs of sepsis developing per se at this time. At this point there does not appear to be criteria for hospitalization. I believe you will do okay back at your care facility with the oral antibiotics and your usual medicines. Discharge Date/Time: 03/15/24 15:57
[2024-03-15] MEDS: SODIUM CHLORIDE 0.9% 1,000 ML IV STA ×2 (08:45→11:33)
[2024-03-15 08:47] LABS: BASOPHILS % (AUTO) 0.1 %; EOSINOPHILS % (AUTO) 0.1 %; HCT - HEMATOCRIT 29.9 % (42.0-52.0); HGB - HEMOGLOBIN 9.6 g/dL (14.0-18.0); LYMPHOCYTES # (AUTO) 0.5 10^3/uL (1.5-3.5); LYMPHOCYTES % (AUTO) 3.2 %; MEAN CORPUSCULAR HEMOGLOBIN 30.6 pg (27.0-31.0); MEAN CORPUSCULAR HGB CONC 32.1 g/dL (32.0-36.0); MEAN CORPUSCULAR VOLUME 95.2 fL (80.0-94.0); MEAN PLATELET VOLUME 9.5 fL (7.4-11.4); MONOCYTES # (AUTO) 0.8 10^3/uL (0.0-1.0); MONOCYTES % (AUTO) 5.4 %; NEUTROPHILS # (AUTO) 12.8 10^3/uL (1.5-6.6); NEUTROPHILS % (AUTO) 90.7 %; PLT - PLATELET COUNT 245 10^3/uL (130-450); RED BLOOD COUNT 3.14 10^6/uL (4.70-6.10); RED CELL DISTRIBUTION WIDTH 12.3 % (12.0-15.0); WHITE BLOOD COUNT 14.2 x10^3/uL (4.8-10.8)
--- NOTE | 2024-03-15 08:47 | XRAY Report ---
PROCEDURE: Chest 1V INDICATIONS: weakness TECHNIQUE: One view of the chest was acquired. COMPARISON: Chest radiographs 05/27/2023. FINDINGS: Surgical changes and devices: None. Lungs and pleura: No pleural effusions or pneumothorax. Lungs are clear. Mediastinum: Mediastinal contours appear normal. Heart size is normal. Bones and chest wall: No suspicious bony lesions. Overlying soft tissues appear unremarkable. IMPRESSION: No acute cardiopulmonary process. Reviewed by: Austin Mathis MD on 03/15/2024 8:46 AM PDT Approved by: Austin Mathis MD on 03/15/2024 8:46 AM PDT Station ID: [id number]
[2024-03-15 08:56] LABS: BILIRUBIN,URINE NEGATIVE (NEGATIVE); GLUCOSE, URINE (UA) NEGATIVE (NEGATIVE); KETONES,URINE (UA) NEGATIVE (NEGATIVE); LEUKOCYTE ESTERASE, URINE LARGE (NEGATIVE); NITRITE,URINE POSITIVE (NEGATIVE); OCCULT BLOOD,URINE MODERATE (NEGATIVE); PH,URINE 8.5 PH (5.0-7.5); PROTEIN,URINE 100 mg/dL (NEGATIVE); UROBILINOGEN,URINE 0.2 (NORMAL) E.U./dL (NORMAL)
[2024-03-15 08:57] LABS: CLARITY,URINE CLOUDY (CLEAR)
[2024-03-15 09:01] LABS: ALBUMIN 3.4 g/dL (3.2-5.5); BILIRUBIN,TOTAL 0.5 mg/dL (0.2-1.0); CALCIUM 9.8 mg/dL (8.5-10.3); CREATININE 2.9 mg/dL (0.6-1.3); MAGNESIUM 1.9 mg/dL (1.7-2.3); POTASSIUM 4.5 mmol/L (3.5-4.5); TOTAL PROTEIN 6.9 g/dL (6.4-8.9)
[2024-03-15 09:06] LABS: BACTERIA,URINE Many /HPF (None Seen); SQUAMOUS EPITHELIAL CELL,UR NONE SEEN (<= Few); WBC,URINE >25 /HPF (0-3)
[2024-03-15 09:49] LABS: B. PARAPERTUSSIS- RESP PCR PAN NOT DETECTED; B. PERTUSSIS- RESP PCR PANEL NOT DETECTED; C. PNEUMONIAE- RESP PCR PANEL NOT DETECTED; CORONAVIRUS 229E-RESP PCR NOT DETECTED; CORONAVIRUS HKU1-RESP PCR NOT DETECTED; CORONAVIRUS NL63-RESP PCR NOT DETECTED; CORONAVIRUS OC43-RESP PCR NOT DETECTED; HUMAN METAPNEUMOVIRUS NOT DETECTED; INFLUENZA A- RESP PCR PANEL NOT DETECTED; INFLUENZA B - RESP PCR PANEL NOT DETECTED; M. PNEUMONIAE- RESP PCR PANEL NOT DETECTED; PARAINFLUENZA VIRUS 1 NOT DETECTED; PARAINFLUENZA VIRUS 2 NOT DETECTED; PARAINFLUENZA VIRUS 3 NOT DETECTED; PARAINFLUENZA VIRUS 4 NOT DETECTED; RHINOVIRUS/ENTEROVIRUS NOT DETECTED; RSV- RESP PCR PANEL NOT DETECTED; SARS-CoV-2 -RESP PCR PANEL NOT DETECTED
[2024-03-15] MEDS: levoFLOXacin 750 MG/150 ML 750 MG/150 ML BAG IV STA (10:19)
[2024-03-15] MEDS: HYDROmorphone 1 MG/ML CARPUJECT IVP STA (11:32)
[2024-03-15] MEDS: ACETAMINOPHEN 500 MG TABLET PO STA (11:33)
--- NOTE | 2024-03-15 12:32 | CT Report ---
PROCEDURE: Abdomen/Pelvis WO INDICATIONS: UTI, back pain TECHNIQUE: A CT scan of the abdomen and pelvis was performed without the use of intravenous contrast. Images we re recorded and evaluated at appropriate window settings. Reformats: coronal and sagittal. For radiat ion dose reduction, the following was used: automated exposure control, adjustment of mA and/or kV ac cording to patient size. COMPARISON: None. FINDINGS: Image quality: Diagnostic. Lower chest: Unremarkable. Liver: No contour-deforming mass. Gallbladder: Surgically absent. Biliary tree: No intrahepatic or extrahepatic dilation, accounting for age. Spleen: No splenomegaly. Pancreas: No pancreatic ductal dilation. Adrenals: No adrenal nodule. Kidneys and ureters: There is moderate hydronephrosis and severe hydroureter with tortuosity of the u reters. There is no urolithiasis. A 2.1 cm simple cyst arises from the right upper pole and several s ubcentimeter cysts either appear simple or hyperdense but are too small to adequately characterize. T here is moderate perinephric inflammation. Stomach, bowel and peritoneum: No gastric or small bowel dilation. No abnormal wall thickening. No pa thologic free fluid. Lymph nodes: No central or retroperitoneal adenopathy. Vessels: No infrarenal aortic aneurysm. Reproductive organs: The prostate is enlarged measuring 7.3 cm in transverse dimension. A Bassett tao ter is present with the balloon inflated centrally within the prostatic urethra. Bassett catheter termi nates within the prostatic urethra. Bladder: The bladder is distended with some intraluminal gas likely secondary to instrumentation. The re is mild circumferential bladder wall thickening. Pelvic lymph nodes: No adenopathy by size criteri a. Bones: No aggressive osseous abnormality. Other: No significant ventral or inguinal hernia. IMPRESSION: Findings consistent with bladder outlet obstruction. Bassett catheter terminating within the prostatic urethra. Recommend advancement of at least 6 cm. Reviewed by: Yesenia Reed MD on 03/15/2024 11:31 AM MARIS Approved by: Yesenia Reed MD on 03/15/2024 11:31 AM MARIS Station ID: [id number]
[2024-03-15] MEDS: LIDOCAINE 2% URO-JET 5 ML SYRINGE UR STA (13:05)
[2024-03-15 14:12] VITALS: BP 98/46; O2SAT 96
== END 2024-03-15 15:57 | disposition home or self-care (01) ==
LOC: EDUNIT# → ED 07:54
DX: N39.0 Urinary tract infection, site not specified (principal); N28.9 Disorder of kidney and ureter, unspecified; M54.9 Dorsalgia, unspecified; T83.098A Other mechanical complication of other urinary catheter, initial encounter; I10 Essential (primary) hypertension; E78.00 Pure hypercholesterolemia, unspecified; Z79.899 Other long term (current) drug therapy
CPT/HCPCS: 36415; 71045; 74176; 80053; 81001; 83605; 83690; 83735; 85025; 87077; 87086; 87181; 87633; 96365; 96366; 96375; 99284; A9270; J1170; 81003

== ENCOUNTER 2024-04-09 13:43 | Outpatient (CLI) | payer MEDICARE, OTHER ==
--- NOTE | 2024-04-10 12:49 | Ultrasound Report ---
PROCEDURE: Renal (Retroperitoneal) INDICATIONS: URINARY RETENTION TECHNIQUE: Real-time scanning was performed of the retroperitoneal organs, with image documentation. COMPARISON: None. FINDINGS: Right kidney measures 12 cm. Left kidney measures 11 cm. Mild cortical thinning on the left measuring 0.9 cm in thickness. Multiple cortical cysts are present, measuring up to 1.8 cm on the right and 1.3 cm on the left. Left mid region complicated cyst versus solid lesion is again noted measuring 1.5 x 1.2 cm, similar to pr ior. Moderate to severe bilateral hydronephrosis again seen. Catheter in place in the bladder. Volume is currently 612 cc. IMPRESSION: Moderate to severe bilateral hydronephrosis. Small mass versus complicated cyst in the left mid renal region measuring 1.5 cm. Distended urinary bladder. Reviewed by: Collin Catalan MD on 04/10/2024 12:47 PM PDT Approved by: Collin Catalan MD on 04/10/2024 12:47 PM PDT Station ID: [id number]
== END 2024-04-09 13:44 | disposition home or self-care (01) ==
LOC: DI 13:43
PROVIDERS: ATTEND Urology
DX: N13.30 Unspecified hydronephrosis (principal); R33.9 Retention of urine, unspecified; N28.1 Cyst of kidney, acquired

== ENCOUNTER 2024-04-17 07:28 | Outpatient (CLI) | payer MEDICARE, OTHER ==
--- NOTE | 2024-04-17 13:54 | CT Report ---
PROCEDURE: Abdomen/Pelvis WO INDICATIONS: HYDRONEPHROSIS TECHNIQUE: A CT scan of the abdomen and pelvis was performed without the use of intravenous contrast. Images we re recorded and evaluated at appropriate window settings. Reformats: coronal and sagittal. For radiat ion dose reduction, the following was used: automated exposure control, adjustment of mA and/or kV ac cording to patient size. COMPARISON: CT abdomen and pelvis dated March 15, 2024. CT lumbar spine dated April 07, 2014.. FINDINGS: Image quality: Diagnostic. Evaluation of the visceral organs is limited due to the lack of intravenou s contrast. Lower chest: Marked LAD coronary vessel calcification. Hypodense blood pool with respect to the myoca rdium suggestive of anemia right lower lobe solid, noncalcified pulmonary nodule measuring 6 mm (13/3 6), not well seen on prior). Right lower lobe linear atelectasis/scar. Dependent atelectasis. No basi lar effusion. Small hiatal hernia. Liver: No contour-deforming mass. Gallbladder: Surgically absent. Biliary tree: No intrahepatic or extrahepatic dilation, accounting for age. Spleen: No splenomegaly. Pancreas: No pancreatic ductal dilation. Adrenals: No adrenal nodule. Kidneys and ureters: Compared to CT dated March 15, 2021, redemonstration of severe bilateral hydrou reteronephrosis. No obstructive nephrolithiasis. Left upper pole proteinaceous cyst. Bilateral simple cysts. Additional subcentimeter cortical hypodensities are too small to characterize, statistically cysts. Stomach, bowel and peritoneum: No gastric or small bowel dilation. No abnormal wall thickening. No pa thologic free fluid. Diverticulosis without evidence of diverticulitis. Normal appendix. Above-averag e colonic stool burden. Lymph nodes: No central or retroperitoneal adenopathy. Vessels: No infrarenal aortic aneurysm. Mild to moderate calcification of the abdominal aorta and minerva ofemoral vasculature. Reproductive organs: Moderate to marked prostatomegaly measuring 6.1 cm (3/127). Bladder: Bassett is appropriately positioned. Bladder is circumferentially thickened, accounting for un derdistention. No calcified bladder stones. Pelvic lymph nodes: Borderline enlarged left inguinal lymph node measuring 1 cm in short axis (3/114) , not well seen on prior. Prominent, but not enlarged, left common femoral lymph node measuring 0.7 c m in short axis (3/128), not well seen on prior. Bones: No aggressive osseous abnormality. No acute fractures. Posterior fusion hardware from L2 to S1 is intact. As before, the left L2 unilateral screw terminates left of the vertebral body (). Mar ked multilevel degenerative changes of the spine. Diffuse osseous demineralization. Other: Tiny fat-containing umbilical hernia.. Left posterolateral fat-containing hernia, as before (). IMPRESSION: 1.Compared to abdomen and pelvis dated March 15, 2024, similar appearance of severe bilateral hydrou reteronephrosis with no obstructing nephrolithiasis. 2.Bassett catheter is appropriately positioned with circumferential bladder wall thickening which may b e secondary to malignancy and/or sequela of chronic outlet obstruction. Recommend Urology consultatio n. 3.Moderate to marked prostatomegal. 4.Two left-sided inguinal/common femoral lymph nodes which are prominent/borderline enlarged, not wel l seen on prior, and are indeterminate. 5.Right lower lobe solid, noncalcified pulmonary nodule measuring 6 mm, not well seen on prior. Per F leischner guidelines, recommend repeat CT chest in 6-12 months. 6.Colonic diverticulosis, without diverticulitis. Above-average colonic stool burden which may correl ate with constipation. 7.Posterior fusion hardware from L2 to S1. As before, the left L2 unilateral screw terminates left of the vertebral body. Reviewed by: Dwight Chamberlain MD on 04/17/2024 1:52 PM PDT Approved by: Dwight Chamberlain MD on 04/17/2024 1:52 PM PDT Station ID: [id number]
== END 2024-04-17 07:29 | disposition home or self-care (01) ==
LOC: DI 07:28
PROVIDERS: ATTEND Urology
DX: N13.30 Unspecified hydronephrosis (principal); N40.1 Benign prostatic hyperplasia with lower urinary tract symptoms; R33.8 Other retention of urine; R59.0 Localized enlarged lymph nodes; R91.1 Solitary pulmonary nodule; K57.30 Diverticulosis of large intestine without perforation or abscess without bleeding; Z98.1 Arthrodesis status

== ENCOUNTER 2024-04-21 09:48 | Outpatient (CLI) | payer MEDICARE, OTHER ==
[2024-04-21 10:16] LABS: CALCIUM 9.5 mg/dL (8.5-10.3); CREATININE 1.8 mg/dL (0.6-1.3); POTASSIUM 4.3 mmol/L (3.5-4.5)
== END 2024-04-21 09:49 | disposition home or self-care (01) ==
LOC: LAB 09:48
PROVIDERS: ATTEND Urology
DX: N18.9 Chronic kidney disease, unspecified (principal)
CPT/HCPCS: 36415; 80048